=== PATIENT | female | born 1995 | race Two or more races ===

== ENCOUNTER 2022-08-04 18:20 | Emergency (ER) | payer OTHER ==
[~2022-08-04] VITALS: Ht 147.3 cm; Wt 52.6 kg
[2022-08-04] MEDS ORDERED: PRENATAL + DHA1 EAC1 (18:30)
== END 2022-08-04 22:01 | disposition home or self-care (01) ==
LOC: ER 18:20
DX: O20.9 Hemorrhage in early pregnancy, unspecified (principal); Z3A.01 Less than 8 weeks gestation of pregnancy; Z88.8 Allergy status to other drugs, medicaments and biological substances

== ENCOUNTER → 2022-08-05 | Emergency (ER) | payer OTHER ==
[~2022-08-05] VITALS: Ht 147.3 cm; Wt 52.6 kg
[~2022-08-05] MED LIST: PRENATAL + DHA1 EAC1
== END | disposition home or self-care (01) ==
LOC: ER 11:41
DX: O20.8 Other hemorrhage in early pregnancy (principal); Z3A.08 8 weeks gestation of pregnancy; Z88.1 Allergy status to other antibiotic agents

== ENCOUNTER 2022-08-07 00:49 | Emergency (ER) | payer OTHER ==
[~2022-08-07] VITALS: Ht 147.3 cm; Wt 52.6 kg
== END 2022-08-07 04:45 | disposition home or self-care (01) ==
LOC: ER 00:49
DX: O20.9 Hemorrhage in early pregnancy, unspecified (principal); Z3A.01 Less than 8 weeks gestation of pregnancy

== ENCOUNTER 2022-09-01 13:35 | Outpatient (CLI) | payer OTHER | END 2022-09-01 14:45 | disposition home or self-care (01) | LOC: PRENATAL 13:35 | PROVIDERS: ATTEND Obstetrics & Gynecology Maternal & Fetal Medicine | DX: O36.80X0 Pregnancy with inconclusive fetal viability, not applicable or unspecified (principal); Z14.8 Genetic carrier of other disease; Z36.9 Encounter for antenatal screening, unspecified; Z3A.11 11 weeks gestation of pregnancy ==

== ENCOUNTER 2022-09-11 13:15 | Emergency (ER) | payer OTHER ==
[~2022-09-11] VITALS: Ht 147.3 cm; Wt 51.3 kg
== END 2022-09-11 17:58 | disposition home or self-care (01) ==
LOC: ER 13:15
DX: O03.9 Complete or unspecified spontaneous abortion without complication (principal); Z88.8 Allergy status to other drugs, medicaments and biological substances

== ENCOUNTER 2023-03-08 11:13 | Outpatient (CLI) | payer OTHER | END 2023-03-08 11:21 | disposition home or self-care (01) | LOC: PRENATAL 11:13 | PROVIDERS: ATTEND Obstetrics & Gynecology Maternal & Fetal Medicine | DX: O36.80X0 Pregnancy with inconclusive fetal viability, not applicable or unspecified (principal); Z36.82 Encounter for antenatal screening for nuchal translucency; Z3A.11 11 weeks gestation of pregnancy ==